=== PATIENT | male | born 1960 | race African-American/Black ===

== ENCOUNTER → 2023-08-01 | Outpatient (CLI) | payer SELFPAY ==
[2023-08-01 09:26] LABS: Hematocrit 48.4 % (40-54); Mean Corp Hgb Conc 33.1 g/dL (32-36); Mean Corpuscular Hgb 29.4 pg (27.0-32.0); Mean Corpuscular Volume 88.8 fL (80-94); Mean Platelet Vol. 9.4 fl (6.2-12.0); Platelet Count 292 K/mm3 (150-450); RBC Distribution Width CV 12.4 % (11.6-14.6); RBC Distribution Width SD 40.4 fl (35.1-43.9); Red Blood Count 5.45 M/mm3 (4.6-6.2); White Blood Count 5.6 K/mm3 (4.4-11.0)
[2023-08-01 09:46] LABS: Anion Gap 4 (5-15); BUN 10 mg/dL (7-18); BUN/Creat Ratio 7.4 RATIO (10-20); Calcium,Total 9.2 mg/dL (8.5-10.1); Chloride 106 mmol/L (98-107); Creatinine, Serum 1.36 mg/dL (0.70-1.30); EST Glomerular Filtration Rate 57 mL/min (>60); Est Glom Filt Rate - Afr Amer 69 mL/min (>60); Glucose 86 mg/dL (74-106); Potassium 3.6 mmol/L (3.5-5.1); Sodium Level 138 mmol/L (136-145)
== END | disposition home or self-care (01) ==
PROVIDERS: Referring Provider Otolaryngology; Visit Provider Otolaryngology
DX: Z01.818 Encounter for other preprocedural examination (principal)
CPT/HCPCS: 36415; 80048; 85027; 93005

== ENCOUNTER → 2023-08-05 | Outpatient (CLI) | payer SELFPAY ==
--- NOTE | 2023-08-05 11:20 | TOBX_PTH ---
PATIENT: STEFANIE DHALIWAL LOC: [facility] U#:[id number] AGE/SX: 62/M ROOM: RE08/05/[address]: Dr. Serge Mills MD : 1960 BED: DIS: 08/05/2023 SPEC #: [id number] RECD: 08/05/23 15:19 STATUS: GLENN MATEO #: [id number] JUDY: 08/05/23 11:[address]: Serge Mills DEPT: SURGICAL PATHOLOGY RECD BY: Ellen Yousif ENTERED: 08/06/23 10:54 SP TYPE: TONGUE BX OTHR DR: No Primary Care Phys Tissues: Tongue, NOS Procedures: Surgery Specimen Level IV HEADER OPERATION: Right excision tongue lesion PRE-OP DIAGNOSIS: Benign neoplasm of tongue TISSUE SUBMITTED: Right lateral tongue mass MICROSCOPIC DIAGNOSIS Right lateral tongue mass, excision biopsy: Consistent with irritation fibroma. Acanthosis, hyperkeratosis and parakeratosis. Negative for malignancy. SJ/mr 08/07/23 MICROSCOPIC DESCRIPTION Slides are reviewed. GROSS DESCRIPTION Received in fixative is one container labeled with the patient's name and designated Right lateral tongue mass. The specimen consists of a single polypoid fragment of krishnan tissue measuring 0.9 x 0.8 x 0.5cm. The specimen is inked, bisected and submitted entirely in one cassette. / 08/06/23 TC:5 CPT: 15085
== END | disposition home or self-care (01) ==
LOC: LABSPEC 15:27
PROVIDERS: Referring Provider Otolaryngology; Visit Provider Otolaryngology
DX: L85.9 Epidermal thickening, unspecified (principal)
CPT/HCPCS: 88305